=== PATIENT | female | born 2000 | race Two or more races ===

== ENCOUNTER → 2022-07-17 | Outpatient (REF) | LOC: M EMP 10:12 | PROVIDERS: ATTEND Family Medicine | DX: Z11.52 Encounter for screening for COVID-19 (principal) ==

== ENCOUNTER → 2022-07-17 | Outpatient (REF) | LOC: M EMP 11:38 | PROVIDERS: ATTEND Family Medicine | DX: Z11.52 Encounter for screening for COVID-19 (principal) ==

== ENCOUNTER 2022-11-04 23:31 | Emergency (ER) | payer SELFPAY ==
[~2022-11-04] VITALS: Ht 160 cm; Wt 83.5 kg
[2022-11-04 23:33] VITALS: BP 119/86; TEMP 100.2; O2SAT 98
[2022-11-05 00:38] LABS: RSV AMPLIFICATION NEGATIVE (NEGATIVE)
[2022-11-05] MEDS ORDERED: OMEP40CA4 PO (15:25)
== END 2022-11-05 02:24 | disposition left against medical advice (07) ==
LOC: M ED 23:31
DX: Z53.21 Procedure and treatment not carried out due to patient leaving prior to being seen by health care provider (principal)

== ENCOUNTER 2022-11-05 11:48 | Emergency (ER) | payer OTHER, SELFPAY ==
[~2022-11-05] VITALS: Ht 160 cm; Wt 82.2 kg
[2022-11-05 11:48] VITALS: TEMP 98.7
[2022-11-05] MEDS ORDERED: KETOROLAC 30 MG/ML 1ML VIAL IV ONE (12:35)
[2022-11-05] MEDS ORDERED: NS 1,000 ML IV ONE (12:35)
[2022-11-05] MEDS ORDERED: ONDANSETRON 4MG 2ML VIAL IV ONE (12:35)
[2022-11-05 12:41] LABS: BASO % 0.2 % (0.0-1.0); EOS # 0.1 10^3/uL (0.0-0.5); EOS % 1.1 % (0.0-3.0); HEMATOCRIT 40.9 % (36.0-47.0); HEMOGLOBIN 13.8 g/dl (12.0-15.5); LYMPH # 0.7 10^3/uL (1.5-5.0); LYMPH % 16.8 % (24.0-44.0); MEAN CORPUSCULAR HEMOGLOBIN 30.7 pg (27.0-33.0); MEAN CORPUSCULAR HGB CONC 33.7 g/dl (32.0-36.5); MEAN CORPUSCULAR VOLUME 91.1 fl (80.0-96.0); MONO # 0.4 10^3/uL (0.0-0.8); MONO % 9.1 % (2.0-8.0); NEUTROPHILS # 3.2 10^3/uL (1.5-8.5); NEUTROPHILS % 72.3 % (36.0-66.0); PLATELET COUNT, AUTOMATED 188 10^3/uL (150-450); RED BLOOD COUNT 4.49 10^6/uL (4.00-5.40); WHITE BLOOD COUNT 4.4 10^3/uL (4.0-10.0)
[2022-11-05 13:18] LABS: CK-MB VALUE MASS < 1.0 NG/ML (<3.6); LIPASE 25 U/L (12-53)
[2022-11-05 13:20] LABS: ALBUMIN 3.8 G/DL (3.2-5.2); ALKALINE PHOSPHATASE 63 U/L (46-116); ALT/SGPT 14 U/L (7.0-40); AST/SGOT 22 U/L (<34); BILIRUBIN,DIRECT 0.2 MG/DL (<0.4); BILIRUBIN,TOTAL 0.7 MG/DL (0.3-1.2); TOTAL PROTEIN 6.7 G/DL (5.7-8.2)
[2022-11-05 13:21] LABS: CPK CREATINE PHOSPHOKINASE 57 U/L (34-145); MB/CK RELATIVE INDEX 1.75 (< OR =4)
[2022-11-05] MEDS ORDERED: ISOVUE-370 76% 100ML VIAL As Ordered ONE (14:20)
[2022-11-05] MEDS ORDERED: OMEP40CA4 PO (15:25)
[2022-11-05 15:39] VITALS: BP 110/74; O2SAT 99
== END 2022-11-05 15:40 | disposition home or self-care (01) ==
LOC: M ED 11:48
DX: R07.9 Chest pain, unspecified (principal); R10.13 Epigastric pain; R11.0 Nausea; Z88.0 Allergy status to penicillin
CPT/HCPCS: 71046; 71275; 76705; 80047; 80076; 82550; 82553; 83690; 84484; 84702; 85025; 85379; 93005; 93041; 94760; 96361; 96374; 96375; 99284; J1885; J2405; Q9967

== ENCOUNTER → 2023-01-10 | Outpatient (REF) ==
[~2023-01-10] MED LIST: OMEP40CA4 PO
[2023-01-10 10:39] LABS: RSV AMPLIFICATION NEGATIVE (NEGATIVE)
== END ==
LOC: M EMP 09:03
PROVIDERS: ATTEND Family Medicine
DX: Z11.52 Encounter for screening for COVID-19 (principal)